=== PATIENT | female | born 1980 | race American Indian/Alaskan Native ===

== ENCOUNTER 2016-04-28 08:33 | Emergency (ER) | payer SELFPAY ==
[2016-04-28 10:50] VITALS: BP 148/101
--- NOTE | 2016-04-28 12:09 | Emergency Department Report ---
HPI - General Chief Complaint: Upper Respiratory Infection Time Seen by Provider: 04/28/16 10:36 - HPI HPI: 35-year-old female presents today with cold symptoms 4 days. Positive for cough, runny nose, congestion. Patient states that she has sick coworkers to work. Positive for subjective fever. Tried Tylenol with fever control. Tried [id number] nasal spray without relief. Denies nausea, vomiting, chest pain, shortness of breath, abdominal pain, sore throat, painful swallowing. Patient has history of hypertension. She states that she took carvedilol, amlodipine, Lasix at 8 AM this morning. ED Past Medical Hx - Past Medical History Previous Medical History?: Yes Hx Hypertension: Yes Hx Congestive Heart Failure: Yes Hx Renal Disease: Yes - Surgical History Past Surgical History?: Yes Additional Surgical History: . cardiac cath - Social History Smoking Status: Never Smoker Substance Use Type: Prescribed - Medications Home Medications: Home Medications Medication Instructions Recorded Confirmed Last Taken Type Carvedilol [Coreg] 6.25 mg PO Q12H 05/13/14 05/13/14 Unknown History Ergocalciferol (Vitamin D2) 1.25 mg PO 1XW 05/13/14 05/13/14 Unknown History [Vitamin D2] Furosemide [Lasix] 40 mg PO DAILY 05/13/14 05/13/14 Unknown History Potassium Chloride [Klor-Con M10] 20 meq PO DAILY 05/13/14 05/13/14 Unknown History Ranitidine HCl [Zantac] 150 mg PO BID 05/13/14 05/13/14 Unknown History amLODIPine [Norvasc] 10 mg PO DAILY 05/13/14 05/13/14 Unknown History hydrALAZINE [Apresoline TAB] 75 mg PO Q8H 05/13/14 05/13/14 Unknown History Cyclobenzaprine [Flexeril] 10 mg PO TID PRN #20 tablet 01/09/16 Unknown Rx Naproxen [Naprosyn] 500 mg PO BID #30 tablet 01/09/16 Unknown Rx Ibuprofen [Motrin 800 MG tab] 800 mg PO Q8HR PRN #20 tablet 01/22/16 Unknown Rx Cetirizine HCl [ZyrTEC] 10 mg PO QDAY #20 tab.chew 04/28/16 Unknown Rx Fluticasone [Flonase] 1 spray NS QDAY #1 bottle 04/28/16 Unknown Rx guaiFENesin/DEXTROMETHORPHAN 1 each PO Q12H #30 tbmp.12hr 04/28/16 Unknown Rx [Mucinex Dm ER 1,200-60 mg Tab] ED Review of Systems ROS: Stated complaint: COLD/COUGH/FEVER Other details as noted in HPI Constitutional: fever (subjective). denies: chills, malaise Eyes: denies: eye pain ENT: congestion, other (ear fullness). denies: ear pain, throat pain Respiratory: cough. denies: shortness of breath, wheezing Cardiovascular: denies: chest pain, palpitations Endocrine: no symptoms reported Gastrointestinal: denies: abdominal pain, nausea, vomiting Skin: denies: rash Neurological: denies: headache, weakness Physical Exam - Physical Exam Vital Signs: Vital Signs 04/28/16 04/28/16 08:43 10:49 Temperature 97.7 F Pulse Rate 83 90 Respiratory 20 Rate Blood Pressure 160/117 Blood Pressure 148/101 [Left] O2 Sat by Pulse 98 Oximetry Physical Exam: GENERAL: The patient is well-developed and well-nourished. Patient is in NAD. HEAD: Normocephalic. Atraumatic. EYES: PERRL. EARS: External auditory canals and tympanic membranes clear; hearing grossly intact. NOSE: Normal nasal mucosa with minimal nasal discharge. THROAT: Positive for minimal erythema with tonsillomegaly. No tonsillar exudates. NECK: Positive for anterior cervical lymphadenopathy. CHEST/LUNGS: Clear to auscultation throughout. HEART/CARDIOVASCULAR: Regular rate and rhythm. ABDOMEN: Abdomen is soft, nontender. No guarding or rebound tenderness. EXTREMITIES: Peripheral pulses intact. Capillary refill less than 2 seconds. NEURO: Alert and oriented x 3. Normal gait. ED Course Vital Signs 04/28/16 04/28/16 08:43 10:49 Temperature 97.7 F Pulse Rate 83 90 Respiratory 20 Rate Blood Pressure 160/117 Blood Pressure 148/101 [Left] O2 Sat by Pulse 98 Oximetry ED Medical Decision Making - Lab Data Vital Signs 04/28/16 04/28/16 08:43 10:49 Temperature 97.7 F Pulse Rate 83 90 Respiratory 20 Rate Blood Pressure 160/117 Blood Pressure 148/101 [Left] O2 Sat by Pulse 98 Oximetry - Medical Decision Making 35-year-old female presents today with cough and cold symptoms. Her rapid strep test is negative. Patient is in no acute distress at this time. She will be discharged home and is encouraged to follow up with a primary care provider. She will be sent home on Zyrtec, Mucinex DM, Flonase and is encouraged to return to the emergency room for any worsening symptoms. Critical care attestation.: If time is entered above; I have spent that time in minutes in the direct care of this critically ill patient, excluding procedure time. ED Disposition Clinical Impression: URI (upper respiratory infection) Qualifiers: URI type: unspecified URI Qualified Code(s): J06.9 - Acute upper respiratory infection, unspecified Pharyngitis Qualifiers: Pharyngitis/tonsillitis etiology: unspecified etiology Qualified Code(s): J02.9 - Acute pharyngitis, unspecified Disposition: DC/[facility] Is pt being admited?: No Does the pt Need Aspirin: No Condition: Stable Instructions: Upper Respiratory Infection (ED), Pharyngitis (ED) Additional Instructions: Follow-up with primary care provider. Return to the emergency department if symptoms worsen. Prescriptions: Cetirizine HCl [ZyrTEC] 10 mg PO QDAY #20 tab.chew Fluticasone [Flonase] 1 spray NS QDAY #1 bottle guaiFENesin/DEXTROMETHORPHAN [Mucinex Dm ER 1,200-60 mg Tab] 1 each PO Q12H #30 tbmp.12hr Referrals: PRIMARY CARE, [Primary Care Provider] - 3-5 Days [facility] [Outside] - 3-5 Days Forms: Work/School Release Form(ED) Time of Disposition: 12:10
== END 2016-04-28 12:18 | disposition critical access hospital (66) ==
LOC: ED 08:33
DX: J06.9 Acute upper respiratory infection, unspecified (principal); J02.9 Acute pharyngitis, unspecified; I10 Essential (primary) hypertension; I50.9 Heart failure, unspecified; N28.9 Disorder of kidney and ureter, unspecified
CPT/HCPCS: 87116; 87430; 99282

== ENCOUNTER 2016-07-03 15:45 | Emergency (ER) | payer SELFPAY ==
[2016-07-03 16:36] LABS: Basophils % (Auto) 0.7 % (0.0-1.8); Eosinophils % (Auto) 3.9 % (0.0-4.3); Hematocrit 39.7 % (30.3-42.9); Hemoglobin 13.1 gm/dl (10.1-14.3); Mean Corpuscular HGB Conc 33 % (30-34); Mean Corpuscular Hemoglobin 29 pg (28-32); Mean Corpuscular Volume 87 fl (79-97); Platelet Count 370 K/mm3 (140-440); Red Blood Count 4.57 M/mm3 (3.65-5.03); Red Cell Distribution Width 14.7 % (13.2-15.2); White Blood Count 7.9 K/mm3 (4.5-11.0)
[2016-07-03 16:53] LABS: Anion Gap 17 mmol/L; BUN/Creatinine Ratio 18.33; Blood Urea Nitrogen 22 mg/dL (7-17); Calcium 9.8 mg/dL (8.4-10.2); Carbon Dioxide 26 mmol/L (22-30); Chloride 102.9 mmol/L (98-107); Glucose 84 mg/dL (65-100); Sodium 142 mmol/L (137-145)
[2016-07-03 16:54] LABS: Creatine Kinase MB 2.8 ng/mL (0.0-4.0)
[2016-07-03 18:36] LABS: Bilirubin,Urine NEG (Negative); Blood,Urine LG (Negative); Ketones,Urine NEG (Negative); Leukocyte Esterase,Urine NEG (Negative); Mucus,Urine FEW /HPF; Nitrite,Urine NEG (Negative); Urobilinogen,Urine < 2.0 mg/dL (<2.0)
[2016-07-03] MEDS ORDERED: NORMODYNE IV ONE (21:54)
[2016-07-03] MEDS ORDERED: TORADOL IV ONE (21:54)
--- NOTE | 2016-07-03 23:30 | Emergency Department Report ---
HPI - General Chief Complaint: Chest Pain Time Seen by Provider: 07/03/16 20:46 - HPI HPI: The patient is a 35-year-old female who presents for evaluation of chest pain. The patient reports left-sided chest pain since approximately midnight last night, 22 hours prior to my evaluation. She states that her pain is has been constant since onset, sharp in quality, 10 out of 10 in severity. The patient denies trauma to the chest, fever, cough, dyspnea, hemoptysis, unilateral leg swelling, oral contraceptive use, recent immobilization or surgery, history of DVT or PE, recent cancer, history of familial coagulation disorder. ED Past Medical Hx - Past Medical History Previous Medical History?: Yes Hx Hypertension: Yes Hx Congestive Heart Failure: Yes Hx Renal Disease: Yes - Surgical History Past Surgical History?: Yes Additional Surgical History: . cardiac cath - Social History Smoking Status: Never Smoker Substance Use Type: None - Medications Home Medications: Home Medications Medication Instructions Recorded Confirmed Last Taken Type Carvedilol [Coreg] 6.25 mg PO Q12H 05/13/14 07/03/16 07/03/16 History Furosemide [Lasix] 40 mg PO DAILY 05/13/14 07/03/16 07/03/16 History amLODIPine [Norvasc] 10 mg PO DAILY 05/13/14 07/03/16 07/03/16 History hydrALAZINE [Apresoline TAB] 75 mg PO Q8H 05/13/14 07/03/16 07/03/16 History Allopurinol [Zyloprim] 100 mg PO QDAY 07/03/16 07/03/16 07/03/16 History HYDROcodone/APAP 7.5-325 [[place] 1 each PO Q8HR PRN #15 tablet 07/03/16 Unknown Rx 7.5/325] ED Review of Systems ROS: Stated complaint: HEAVY SHARP CHEST PAIN Other details as noted in HPI Constitutional: denies: fever ENT: denies: throat or neck pain Respiratory: denies: cough, shortness of breath Cardiovascular: reports chest pain Endocrine: denies unexplained weight loss or gain Gastrointestinal: denies: abdominal pain, nausea Genitourinary: denies: dysuria Musculoskeletal: denies: leg swelling Skin: denies: rash Neurological: denies: headache Hematological/Lymphatic: denies: easy bleeding or easy bruising Psych: denies sadness or hopelessness Physical Exam - Physical Exam Vital Signs: Vital Signs 07/03/16 07/03/16 07/03/16 16:00 20:18 20:21 Temperature 99.1 F Pulse Rate 84 71 65 Respiratory 18 14 16 Rate Blood Pressure 181/119 185/108 Blood Pressure [Left] O2 Sat by Pulse 97 99 99 Oximetry 07/03/16 07/03/16 07/03/16 20:25 20:31 20:35 Temperature Pulse Rate 70 64 61 Respiratory 14 10 L 14 Rate Blood Pressure 185/108 177/108 177/108 Blood Pressure 185/103 [Left] O2 Sat by Pulse 100 99 98 Oximetry 07/03/16 07/03/16 07/03/16 20:41 20:45 20:51 Temperature Pulse Rate 67 60 70 Respiratory 13 10 L 12 Rate Blood Pressure 177/108 154/100 154/100 Blood Pressure [Left] O2 Sat by Pulse 98 97 97 Oximetry 07/03/16 07/03/16 07/03/16 20:55 21:00 21:05 Temperature Pulse Rate 61 61 61 Respiratory 20 12 13 Rate Blood Pressure 154/100 154/104 154/104 Blood Pressure [Left] O2 Sat by Pulse 97 99 97 Oximetry 07/03/16 07/03/16 07/03/16 21:11 21:15 21:21 Temperature Pulse Rate 69 61 74 Respiratory 14 24 23 Rate Blood Pressure 154/104 152/102 152/102 Blood Pressure [Left] O2 Sat by Pulse 97 97 98 Oximetry 07/03/16 07/03/16 07/03/16 21:25 21:30 21:35 Temperature Pulse Rate 69 65 66 Respiratory 13 16 17 Rate Blood Pressure 152/102 163/106 163/106 Blood Pressure [Left] O2 Sat by Pulse 99 99 99 Oximetry 07/03/16 07/03/16 07/03/16 21:41 21:45 21:51 Temperature Pulse Rate 61 65 75 Respiratory 15 14 18 Rate Blood Pressure 163/106 160/109 160/109 Blood Pressure [Left] O2 Sat by Pulse 98 98 100 Oximetry 07/03/16 07/03/16 07/03/16 21:55 22:00 22:05 Temperature Pulse Rate 72 65 60 Respiratory 13 19 23 Rate Blood Pressure 160/109 167/114 167/114 Blood Pressure [Left] O2 Sat by Pulse 100 99 97 Oximetry 07/03/16 07/03/16 07/03/16 22:07 22:11 22:15 Temperature Pulse Rate 67 60 66 Respiratory 15 13 Rate Blood Pressure 167/114 167/114 167/114 Blood Pressure [Left] O2 Sat by Pulse 98 98 Oximetry 07/03/16 07/03/16 07/03/16 22:21 22:25 22:30 Temperature Pulse Rate 61 63 60 Respiratory 12 11 L 14 Rate Blood Pressure 153/102 153/102 151/105 Blood Pressure [Left] O2 Sat by Pulse 98 99 98 Oximetry 07/03/16 07/03/16 07/03/16 22:35 22:41 22:45 Temperature Pulse Rate 59 L 57 L 59 L Respiratory 29 H 29 H 28 H Rate Blood Pressure 151/105 151/105 148/98 Blood Pressure [Left] O2 Sat by Pulse 98 99 99 Oximetry Physical Exam: General: well-nourished, well-developed, no acute distress Head: Normocephalic, atraumatic Eyes: normal sclera ENT: Mucous membranes are pink and moist Neck: trachea midline, neck supple, No neck stiffness, no cervical adenopathy Respiratory: Breath sounds equal bilaterally, no wheezing, rales, or rhonchi Cardio: S1 and S2 present, no murmurs, rubs, gallops, capillary refill is brisk Abdomen: Normoactive bowel sounds, soft abdomen, no rigidity, no guarding or rebound tenderness Musc: No pitting edema Skin: No rash Neuro: no facial drooping, normal speech Psych: Normal affect ED Course Vital Signs 07/03/16 07/03/16 07/03/16 16:00 20:18 20:21 Temperature 99.1 F Pulse Rate 84 71 65 Respiratory 18 14 16 Rate Blood Pressure 181/119 185/108 Blood Pressure [Left] O2 Sat by Pulse 97 99 99 Oximetry 07/03/16 07/03/16 07/03/16 20:25 20:31 20:35 Temperature Pulse Rate 70 64 61 Respiratory 14 10 L 14 Rate Blood Pressure 185/108 177/108 177/108 Blood Pressure 185/103 [Left] O2 Sat by Pulse 100 99 98 Oximetry 07/03/16 07/03/16 07/03/16 20:41 20:45 20:51 Temperature Pulse Rate 67 60 70 Respiratory 13 10 L 12 Rate Blood Pressure 177/108 154/100 154/100 Blood Pressure [Left] O2 Sat by Pulse 98 97 97 Oximetry 07/03/16 07/03/16 07/03/16 20:55 21:00 21:05 Temperature Pulse Rate 61 61 61 Respiratory 20 12 13 Rate Blood Pressure 154/100 154/104 154/104 Blood Pressure [Left] O2 Sat by Pulse 97 99 97 Oximetry 07/03/16 07/03/16 07/03/16 21:11 21:15 21:21 Temperature Pulse Rate 69 61 74 Respiratory 14 24 23 Rate Blood Pressure 154/104 152/102 152/102 Blood Pressure [Left] O2 Sat by Pulse 97 97 98 Oximetry 07/03/16 07/03/16 07/03/16 21:25 21:30 21:35 Temperature Pulse Rate 69 65 66 Respiratory 13 16 17 Rate Blood Pressure 152/102 163/106 163/106 Blood Pressure [Left] O2 Sat by Pulse 99 99 99 Oximetry 07/03/16 07/03/16 07/03/16 21:41 21:45 21:51 Temperature Pulse Rate 61 65 75 Respiratory 15 14 18 Rate Blood Pressure 163/106 160/109 160/109 Blood Pressure [Left] O2 Sat by Pulse 98 98 100 Oximetry 07/03/16 07/03/16 07/03/16 21:55 22:00 22:05 Temperature Pulse Rate 72 65 60 Respiratory 13 19 23 Rate Blood Pressure 160/109 167/114 167/114 Blood Pressure [Left] O2 Sat by Pulse 100 99 97 Oximetry 07/03/16 07/03/16 07/03/16 22:07 22:11 22:15 Temperature Pulse Rate 67 60 66 Respiratory 15 13 Rate Blood Pressure 167/114 167/114 167/114 Blood Pressure [Left] O2 Sat by Pulse 98 98 Oximetry 07/03/16 07/03/16 07/03/16 22:21 22:25 22:30 Temperature Pulse Rate 61 63 60 Respiratory 12 11 L 14 Rate Blood Pressure 153/102 153/102 151/105 Blood Pressure [Left] O2 Sat by Pulse 98 99 98 Oximetry 07/03/16 07/03/16 07/03/16 22:35 22:41 22:45 Temperature Pulse Rate 59 L 57 L 59 L Respiratory 29 H 29 H 28 H Rate Blood Pressure 151/105 151/105 148/98 Blood Pressure [Left] O2 Sat by Pulse 98 99 99 Oximetry ED Medical Decision Making - Lab Data Result diagrams: 07/03/16 16:21 07/03/16 16:21 - Medical Decision Making The patient was seen and examined by myself. The patient is placed on a rn cardiac rehab and continuous pulse ox. On initial evaluation, the patient was found to be in no distress. EKG was negative for findings suggestive of acute cardiac infarct. The patient is given IV dose of Toradol for her pain and IV labetalol for elevated blood pressure. Labs and imaging are obtained. Chest x- ray is negative for pneumothorax, focal consolidation, pulmonary vascular congestion, pleural effusion, or other obvious acute cardiopulmonary disease process. Lab results were non-concerning including levels of troponin, WBC, hemoglobin, hematocrit, electrolytes, renal function. The patient was reevaluated and reported that their symptoms were markedly improved. As the patient has a ANSLEY risk score less than 2, and a well's score less than 2, the patient is at low risk of ACS or pulmonary emboli etiology of their symptoms. The patient is stable for discharge with outpatient follow-up. The patient is given follow-up and return instructions. The patient expressed understanding and agreed with the plan. The patient is discharged in stable condition. Critical care attestation.: If time is entered above; I have spent that time in minutes in the direct care of this critically ill patient, excluding procedure time. ED Disposition Clinical Impression: Acute chest pain, Hypertensive urgency Disposition: DISCHARGED TO HOME OR SELFCARE Is pt being admited?: No Does the pt Need Aspirin: No Condition: Stable Instructions: Chest Pain (ED) Prescriptions: HYDROcodone/APAP 7.5-325 [[place] 7.5/325] 1 each PO Q8HR PRN #15 tablet PRN Reason: Pain Referrals: PRIMARY CARE, [Primary Care Provider] - 3-5 Days Time of Disposition: 23:28
[2016-07-03 23:43] VITALS: BP 165/108
--- NOTE | 2016-07-04 08:08 | XRay Report ---
CHEST 2 VIEWS INDICATION: Chest pain. COMPARISON: 03/15/2012 FINDINGS: PA and lateral chest radiographs again suggest mild cardiomegaly/exaggerated cardiomediastinal silhouette, though overall smaller since the prior exam with improved congestive appearance. No large pleural effusions or CHF. An azygous lobe again noted. Mild thoracic spine degenerative spurring. CONCLUSION: No acute chest process with slight cardiomegaly and interval radiographic improvement since February 2012, as described. Please correlate. Thank you for the opportunity to participate in this patient's care.
== END 2016-07-03 23:48 | disposition home or self-care (01) ==
LOC: ED 15:45
DX: R07.9 Chest pain, unspecified (principal); I10 Essential (primary) hypertension; I50.9 Heart failure, unspecified; N28.9 Disorder of kidney and ureter, unspecified; Z95.818 Presence of other cardiac implants and grafts
CPT/HCPCS: 36415; 71020; 80048; 81001; 81025; 82550; 82553; 84484; 85025; 93005; 93010; 96374; 96375; 99285; J1885